=== PATIENT | female | born 1960 | race Caucasian/White ===

== ENCOUNTER → 2021-05-16 | Outpatient (CLI) | payer OTHER ==
--- NOTE | 2021-05-16 15:43 | US ---
EXAMINATION TYPE: US pelvic complete DATE OF EXAM: 05/16/2021 COMPARISON: NONE CLINICAL HISTORY: N93.9 ABN UTERINE AND VAGINAL BLEEDING. TECHNIQUE: Transabdominal (TA). Patient refused transvaginal after tech recommended several times. She was unable to fill her bladder further, she was too uncomfortable. EXAM MEASUREMENTS: Uterus: 5.7 x 3.4 x 3.9 cm Endometrial Stripe: 0.4 cm Right Ovary: Obscured by overlying bowel gas Left Ovary: Obscured by overlying bowel gas 1. Uterus: wnl as seen 2. Endometrium: not well seen, patient unable to well fill bladder and refused transvaginal exam 3. Right Ovary: Obscured by overlying bowel gas 4. Left Ovary: Obscured by overlying bowel gas 5. Bilateral Adnexa: wnl 6. Posterior cul-de-sac: wnl Heterogeneous anteverted uterus with poor visualization of endometrial stripe suspected atrophic. No free fluid in pelvic cul-de-sac. Neither ovary is seen. No adnexal masses noted on images saved. IMPRESSION: Suboptimal study without transvaginal investigation. No abnormal thickened endometrium id entified.
== END | disposition home or self-care (01) ==
LOC: RADUSWWP 14:13
PROVIDERS: ATTEND Internal Medicine Geriatric Medicine
DX: N93.9 Abnormal uterine and vaginal bleeding, unspecified (principal)
CPT/HCPCS: 76856

== ENCOUNTER → 2023-02-16 | Outpatient (CLI) | payer MEDICARE, OTHER ==
--- NOTE | 2023-02-16 15:47 | BD ---
EXAMINATION TYPE: Axial Bone Density DATE OF EXAM: 02/16/2023 CLINICAL HISTORY: 63 years old Female. ICD-10 CODE: Z13.820 SCREENING FOR OSTEOPOROSIS Height: 60.7 in Weight: 188 lbs RISK FACTORS HISTORY OF: Active: yes Postmenopausal woman: age 45 MEDICATIONS: Additional Medications: vit d, cholesterol meds EXAM MEASUREMENTS: Bone mineral densitometry was performed using the [employer]OCK[employer] System. Bone mineral density as measured about the Lumbar spine is: ----- L1-L4(G/cm2): 0.866 T Score Values are as follows: ----- L1: -2.3 ----- L2: -2.5 ----- L3: -2.6 ----- L4: -3.1 ----- L1-L4: -2.6 Z Score Values are as follows: ----- L1: -1.4 ----- L2: -1.6 ----- L3: -1.7 ----- L4: -2.2 ----- L1-L4: -1.7 Bone mineral density baseline Bone mineral density about the R hip (g/cm2): 0.765 Bone mineral density about the L hip (g/cm2): 0.825 T Score values are as follows: -----R Neck: -2.3 -----L Neck: -2.0 -----R Total: -1.9 -----L Total: -1.4 Z Score values are as follows: -----R Neck: -1.2 -----L Neck: -1.0 -----R Total: -1.2 -----L Total: -0.7 Bone mineral density baseline FRAX%s: The graph provided illustrates a 10.9% chance for a major osteoporotic fx and a 1.9% chance f or the hips probability for fx in 10 years time. IMPRESSION: Osteoporosis (T Score less than -2.5). There is increased fracture risk and therapy is usually indicated based on age. Re-Screen 1-2 years. NOTE: T-SCORE=SD OF THE YOUNG ADULT MEAN.
--- NOTE | 2023-02-16 15:55 | MM ---
Reason for Exam: Screening (asymptomatic). Last mammogram was performed 22 year(s) and 11 month(s) ago. Patient History: Menarche at age 15. First Full-Term at age 23. Benign Excisional Biopsy. Risk Values: Jana 5 year model risk: 2.0%. NCI Lifetime model risk: 7.5%. Prior Study Comparison: 04/03/2000 Bilateral Special View Mammogram, [facility]. Tissue Density: The breast tissue is heterogeneously dense. This may lower the sensitivity of mammography. Findings: Analyzed By CAD. No suspicious mass within the left breast. Benign calcifications within both breasts. No suspicious group of calcifications within either breast. There are at least 4 nodules demonstrated within the right breast with largest in the lower outer right breast measuring up to 1.9 cm. Complete ultrasound of the right breast is recommended. Overall Assessment: Incomplete: need additional imaging evaluation, BI-RAD 0 Management: Diagnostic Breast Ultrasound of the right breast. A clinical breast exam by your physician is recommended on an annual basis and results should be correlated with mammographic findings. [facility] will attempt to contact patient to return for supplemental views and ultrasound if indicated. Note on Jana scores and lifetime risk: 1. A Jana score greater than 3% is considered moderate risk. If this is the case, consider specialist referral to assess eligibility for a risk reducing agent. If overall lifetime risk for the development of breast cancer is 20% or higher, the patient may qualify for future screening with alternating mammogram and breast MRI. Electronically signed and approved by: August Gates D.O.
== END | disposition home or self-care (01) ==
LOC: RADBDWWP 14:30
PROVIDERS: ATTEND Internal Medicine Geriatric Medicine
DX: Z12.31 Encounter for screening mammogram for malignant neoplasm of breast (principal); Z13.820 Encounter for screening for osteoporosis; M85.89 Other specified disorders of bone density and structure, multiple sites; M81.0 Age-related osteoporosis without current pathological fracture; Z78.0 Asymptomatic menopausal state
CPT/HCPCS: 77063; 77067; 77080